=== PATIENT | female | born 2005 | race Caucasian/White ===

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

== ENCOUNTER 2024-02-13 16:35 | Emergency (ER) | payer OTHER ==
[~2024-02-13] VITALS: Ht 165.1 cm; Wt 78.0 kg
[~2024-02-13 16:35] MED LIST changes: +NAPROXEN500 MG PO
[2024-02-13 16:41] VITALS: BP 115/69
[2024-02-13] MEDS ORDERED: SODIUM CHLORIDE 0.9% 1,000 ML IV ONE (16:55)
[2024-02-13] MEDS ORDERED: KETOROLAC TROMETHAMINE 30 MG/ML SDV IV ONE (16:55)
[2024-02-13] MEDS ORDERED: ORPHENADRINE CITRATE 30 MG/ML AMP IV ONE (16:55)
[2024-02-13 16:57] LABS: BASO% 0.4 % (0-3); EOS% 2.5 % (0-8); HEMATOCRIT 41.6 % (37.0-47.0); HEMOGLOBIN 14.1 g/dl (12.0-16.0); IMMATURE GRANULOCYTES 0.2 % (0.0-5.0); LYMPH% 15.9 % (15-41); MEAN CELL VOLUME 85.2 fL CALC (80.0-100.0); MEAN CORPUSCULAR HGB 28.9 pG CALC (26.0-32.0); MEAN CORPUSCULAR HGB CONC 33.9 g/dL CAL (32.0-36.0); MONO% 5.8 % (2-13); NEUT# 8.02 thou/uL (2.00-7.15); NEUT% 75.2 % (42-76); RED BLOOD COUNT 4.88 mill/uL (4.20-5.60)
[2024-02-13 17:00] VITALS: BP 112/73
[2024-02-13 17:17] LABS: ALBUMIN 4.4 g/dL (3.2-5.0); BILIRUBIN, TOTAL 0.3 mg/dL (0.02-1.3); CREATININE 0.9 mg/dL (0.5-1.0); POTASSIUM 3.9 mmol/l (3.5-5.1); TOTAL PROTEIN 7.5 g/dL (6.3-8.2)
[2024-02-13 17:49] VITALS: BP 126/76
[2024-02-13 18:00] VITALS: BP 108/65
[2024-02-13 18:30] VITALS: BP 115/70
[2024-02-13] MEDS ORDERED: NAPROXEN500 MG PO (18:32)
[2024-02-13] MEDS ORDERED: PREDNISONE10 MG PO (18:32)
[2024-02-13 18:55] VITALS: BP 115/70
== END 2024-02-13 18:56 | disposition home or self-care (01) | DRG 556 ==
LOC: ED 16:35
PROVIDERS: Nurse Practitioner
DX: M79.18 Myalgia, other site (principal)
CPT/HCPCS: Q9967